=== PATIENT | female | born 1985 | race Two or more races ===

== ENCOUNTER 2019-07-22 12:15 | Outpatient (CLI) | payer OTHER ==
[~2019-07-22] VITALS: Ht 167.6 cm; Wt 81.8 kg
[2019-07-22 12:45] VITALS: BP 125/70
[2019-07-22 12:54] LABS: BASOPHILS # (AUTO) 0.03 x10^3/uL (0-0.1); BASOPHILS % (AUTO) 0 % (0-1); EOSINOPHILS # (AUTO) 0.01 x10^3/uL (0-0.4); EOSINOPHILS % (AUTO) 0 % (1-7); LYMPHOCYTES # (AUTO) 1.79 x10^3/uL (1-3.4); LYMPHOCYTES % (AUTO) 20 % (22-44); MD NO; MEAN CORPUSCULAR HEMOGLOBIN 29.7 pg (27.0-34.8); MEAN CORPUSCULAR HGB CONC 33.5 g/dL (32.4-35.8); MEAN CORPUSCULAR VOLUME 88.7 fL (80-100); MEAN PLATELET VOLUME 9.3 fL (7.4-10.4); MONOCYTES % (AUTO) 7 % (2-9); NEUTROPHILS # (AUTO) 6.58 x10^3/uL (1.8-6.8); NEUTROPHILS % (AUTO) 73 % (42-75); PLATELET COUNT 203 x10^3/uL (130-400); RED BLOOD COUNT 4.17 x10^6/uL (3.82-5.3); RED CELL DISTRIBUTION WIDTH 13.8 % (9.6-15.2)
[2019-07-22 13:01] LABS: MICROSCOPIC INDICATED
[2019-07-22 13:05] LABS: ALANINE AMINOTRANSFERASE 15 U/L (12-78); ALBUMIN 2.6 g/dL (3.4-5.0); ANION GAP 9 mmol/L (5-15); BILIRUBIN, DIRECT 0.1 mg/dL (0.1-0.2); CALCIUM 8.4 mg/dL (8.5-10.1); CHLORIDE 110 mmol/L (98-107); CREATININE 0.62 mg/dL (0.55-1.02)
[2019-07-22 13:08] LABS: ALKALINE PHOSPHATASE 197 U/L (45-117); BILIRUBIN,TOTAL 0.3 mg/dL (0.2-1.0); TOTAL PROTEIN 6.6 g/dL (6.4-8.2)
[2019-07-22 13:11] LABS: PROTEIN/CREATININE RATIO,URINE < 42 (0-200); TOTAL PROTEIN,URINE RANDOM < 5 mg/dL (0-12)
[2019-07-22 13:52] VITALS: BP 126/75
[2019-07-22] MEDS ORDERED: RHOGAM FROM BLOOD BANK 1 NOTE EA IM/IV ONE (14:00)
[2019-07-22] MEDS ORDERED: PREN1TAB60 PO (14:12)
== END 2019-07-22 14:24 | disposition home or self-care (01) ==
LOC: LDOP 12:15
PROVIDERS: ATTEND Obstetrics & Gynecology
DX: O26.899 Other specified pregnancy related conditions, unspecified trimester (principal); I10 Essential (primary) hypertension; E78.5 Hyperlipidemia, unspecified; O99.280 Endocrine, nutritional and metabolic diseases complicating pregnancy, unspecified trimester; E03.9 Hypothyroidism, unspecified
CPT/HCPCS: 36415; 59025; 80053; 81001; 82248; 82570; 84156; 84550; 85025; 86900; 96372; 99211; J2790; 86850; G0463

== ENCOUNTER 2019-08-14 14:58 | Outpatient (CLI) | payer OTHER ==
[~2019-08-14] VITALS: Ht 167.6 cm; Wt 80.9 kg
[~2019-08-14 14:58] MED LIST: PREN1TAB60 PO
[2019-08-14 15:26] VITALS: BP 131/90
== END 2019-08-14 17:27 | disposition home or self-care (01) ==
LOC: LDOP 14:58
PROVIDERS: ATTEND Obstetrics & Gynecology
DX: O09.93 Supervision of high risk pregnancy, unspecified, third trimester (principal); O30.043 Twin pregnancy, dichorionic/diamniotic, third trimester; Z3A.31 31 weeks gestation of pregnancy
CPT/HCPCS: 59025; 99211; G0463

== ENCOUNTER 2019-08-30 00:18 | Inpatient (IN) | payer OTHER ==
[~2019-08-30] VITALS: Ht 167.6 cm; Wt 80.9 kg
[2019-08-30] MEDS ORDERED: SODIUM CITRATE/CITRIC ACID 30 ML UDC ONE (01:13)
[2019-08-30] MEDS ORDERED: NEWBORN KIT ONE (01:13)
[2019-08-30] MEDS ORDERED: OXYTOCIN 30U/ 0.9% NaCL 500ML 500 ML ONE (01:13)
[2019-08-30] MEDS ORDERED: METOCLOPRAMIDE 5 MG/ML, 2ML ONE (01:13)
[2019-08-30 01:23] VITALS: BP 142/83
[2019-08-30] MEDS ORDERED: SODIUM CITRATE/CITRIC ACID 30 ML UDC PO ONE (01:30)
[2019-08-30] MEDS ORDERED: LACTATED RINGERS 1,000 ML IVBOLUS ONE (01:30)
[2019-08-30] MEDS ORDERED: METOCLOPRAMIDE 5 MG/ML, 2ML IV ONE (01:30)
[2019-08-30 01:31] LABS: BASOPHILS # (AUTO) 0.03 x10^3/uL (0-0.1); BASOPHILS % (AUTO) 0 % (0-1); EOSINOPHILS % (AUTO) 0 % (1-7); LYMPHOCYTES # (AUTO) 1.93 x10^3/uL (1-3.4); LYMPHOCYTES % (AUTO) 21 % (22-44); MD NO; MEAN CORPUSCULAR HEMOGLOBIN 28.5 pg (27.0-34.8); MEAN CORPUSCULAR HGB CONC 33.2 g/dL (32.4-35.8); MEAN CORPUSCULAR VOLUME 85.9 fL (80-100); MEAN PLATELET VOLUME 10.4 fL (7.4-10.4); MONOCYTES # (AUTO) 0.67 x10^3/uL (0.2-0.8); MONOCYTES % (AUTO) 7 % (2-9); NEUTROPHILS # (AUTO) 6.75 x10^3/uL (1.8-6.8); NEUTROPHILS % (AUTO) 72 % (42-75); PLATELET COUNT 188 x10^3/uL (130-400); RED BLOOD COUNT 4.44 x10^6/uL (3.82-5.3); RED CELL DISTRIBUTION WIDTH 13.9 % (9.6-15.2)
[2019-08-30] MEDS ORDERED: KETOROLAC 30 MG/1 ML ONE (01:47)
[2019-08-30] MEDS ORDERED: LIDOCAINE 1%, 20ML ONE (01:47)
[2019-08-30] MEDS ORDERED: FENTANYL PF 100 MCG/2ML ONE (01:47)
[2019-08-30] MEDS ORDERED: EPHEDRINE 50 MG/ML, 1ML ONE (01:47)
[2019-08-30] MEDS ORDERED: LACTATED RINGERS 1,000 ML IV SCH ×2 (02:39)
[2019-08-30] MEDS ORDERED: OXYTOCIN 30U/ 0.9% NaCL 500ML 500 ML IV SCH (02:39)
[2019-08-30] MEDS ORDERED: morphine SULFATE 10 MG/ML, 1ML IVPush PRN (03:00)
[2019-08-30] MEDS ORDERED: EPHEDRINE 50 MG/ML, 1ML IM PRN (03:00)
[2019-08-30] MEDS ORDERED: ONDANSETRON 2MG/ML, 2ML IV PRN (03:00)
[2019-08-30] MEDS ORDERED: CARBOPROST TROMETHAMINE 250 MCG/ML, 1ML IM PRN (03:00)
[2019-08-30] MEDS ORDERED: FENTANYL PF 100 MCG/2ML IV PRN (03:00)
[2019-08-30] MEDS ORDERED: METOCLOPRAMIDE 5 MG/ML, 2ML IVPush PRN (03:00)
[2019-08-30] MEDS ORDERED: ALBUTEROL SULFATE 2.5 MG/3 ML NPPB PRN (03:00)
[2019-08-30] MEDS ORDERED: ONDANSETRON 2MG/ML, 2ML IVPush PRN (03:00)
[2019-08-30] MEDS ORDERED: METHYLERGONOVINE 0.2 MG/ML IM PRN (03:00)
[2019-08-30] MEDS ORDERED: MEPERIDINE/PF 25MG/0.5ML IVPush PRN ×2 (03:00→04:00)
[2019-08-30] MEDS ORDERED: KETOROLAC 30 MG/1 ML IV SCH (03:00)
[2019-08-30] MEDS ORDERED: EPHEDRINE 50 MG/ML, 1ML IVPush PRN (03:00)
[2019-08-30] MEDS ORDERED: OXYcodone 5 MG/5 ML ORAL.SOL UDC PO PRN (03:00)
[2019-08-30] MEDS ORDERED: SIMETHICONE 80 MG CHEW TAB PO PRN (03:00)
[2019-08-30] MEDS ORDERED: MISOPROSTOL 200 MCG TABLET PO PRN (03:00)
[2019-08-30] MEDS ORDERED: LABETALOL 5MG/ML, 20ML IV PRN (03:00)
[2019-08-30] MEDS ORDERED: RHOGAM FROM BLOOD BANK 1 NOTE EA IM/IV ONE (03:00)
[2019-08-30] MEDS ORDERED: DIPHENHYDRAMINE 50 MG/ML, 1ML IVPush PRN (03:00)
[2019-08-30] MEDS ORDERED: MEPERIDINE/PF 100 MG/ML ONE (03:35)
[2019-08-30 04:23] VITALS: BP 135/84
[2019-08-30] MEDS: LEVOTHYROXINE 112 MCG TABLET PO SCH (06:24)
[2019-08-30] MEDS: OXYcodone IR 5MG TABLET PO PRN ×2 (06:26→21:34)
[2019-08-30 07:05] VITALS: BP 125/74
[2019-08-30] MEDS: KETOROLAC 30 MG/1 ML IV SCH ×3 (08:32→20:38)
[2019-08-30] MEDS: PRENATAL VIT/IRON/FA 1 EACH TABLET PO SCH (09:00)
[2019-08-30 10:52] LABS: BASOPHILS # (AUTO) 0.04 x10^3/uL (0-0.1); BASOPHILS % (AUTO) 0 % (0-1); EOSINOPHILS % (AUTO) 0 % (1-7); LYMPHOCYTES # (AUTO) 1.84 x10^3/uL (1-3.4); LYMPHOCYTES % (AUTO) 17 % (22-44); MD NO; MEAN CORPUSCULAR HEMOGLOBIN 28.5 pg (27.0-34.8); MEAN CORPUSCULAR HGB CONC 33.4 g/dL (32.4-35.8); MEAN CORPUSCULAR VOLUME 85.4 fL (80-100); MEAN PLATELET VOLUME 10.4 fL (7.4-10.4); MONOCYTES # (AUTO) 0.54 x10^3/uL (0.2-0.8); MONOCYTES % (AUTO) 5 % (2-9); NEUTROPHILS # (AUTO) 8.45 x10^3/uL (1.8-6.8); NEUTROPHILS % (AUTO) 78 % (42-75); PLATELET COUNT 171 x10^3/uL (130-400); RED BLOOD COUNT 4.15 x10^6/uL (3.82-5.3); RED CELL DISTRIBUTION WIDTH 13.8 % (9.6-15.2)
[2019-08-30 11:51] VITALS: BP 132/79
[2019-08-30] MEDS: DOCUSATE 100 MG CAPSULE PO PRN ×2 (15:02→20:38)
[2019-08-30 15:44] VITALS: BP 132/83
[2019-08-30 20:00] VITALS: BP 122/80
[2019-08-31 00:02] VITALS: BP 111/65
[2019-08-31] MEDS: KETOROLAC 30 MG/1 ML IV SCH ×4 (02:22→20:46)
[2019-08-31] MEDS: OXYcodone IR 5MG TABLET PO PRN ×4 (02:26→20:47)
[2019-08-31] MEDS: LEVOTHYROXINE 112 MCG TABLET PO SCH (05:48)
[2019-08-31 08:00] VITALS: BP 131/88
[2019-08-31] MEDS: PRENATAL VIT/IRON/FA 1 EACH TABLET PO SCH (08:29)
[2019-08-31] MEDS: DOCUSATE 100 MG CAPSULE PO PRN ×2 (08:29→20:46)
[2019-08-31 20:00] VITALS: BP 138/89
[2019-09-01] MEDS: KETOROLAC 30 MG/1 ML IV SCH (02:25)
[2019-09-01] MEDS: OXYcodone IR 5MG TABLET PO PRN ×3 (02:26→13:41)
[2019-09-01] MEDS: LEVOTHYROXINE 112 MCG TABLET PO SCH ×2 (06:00→06:07)
[2019-09-01 08:11] VITALS: BP 145/87
[2019-09-01] MEDS: PRENATAL VIT/IRON/FA 1 EACH TABLET PO SCH (08:40)
[2019-09-01] MEDS: IBUPROFEN 800 MG TABLET PO PRN ×2 (08:40→20:46)
[2019-09-01] MEDS: DOCUSATE 100 MG CAPSULE PO PRN ×2 (08:40→20:46)
[2019-09-01 09:57] LABS: ALANINE AMINOTRANSFERASE 16 U/L (12-78); ANION GAP 8 mmol/L (5-15); CALCIUM 7.8 mg/dL (8.5-10.1); CHLORIDE 113 mmol/L (98-107); CREATININE 0.68 mg/dL (0.55-1.02)
[2019-09-01 10:00] LABS: ALKALINE PHOSPHATASE 188 U/L (45-117); BILIRUBIN,TOTAL 0.3 mg/dL (0.2-1.0); TOTAL PROTEIN 5.2 g/dL (6.4-8.2)
[2019-09-01 10:12] LABS: BASOPHILS # (AUTO) 0.04 x10^3/uL (0-0.1); BASOPHILS % (AUTO) 1 % (0-1); EOSINOPHILS # (AUTO) 0.04 x10^3/uL (0-0.4); EOSINOPHILS % (AUTO) 1 % (1-7); HEMOGRAM NOTE RECHECKED; LYMPHOCYTES % (AUTO) 27 % (22-44); MD NO; MEAN CORPUSCULAR HEMOGLOBIN 28.7 pg (27.0-34.8); MEAN CORPUSCULAR HGB CONC 33.4 g/dL (32.4-35.8); MEAN CORPUSCULAR VOLUME 85.8 fL (80-100); MEAN PLATELET VOLUME 9.9 fL (7.4-10.4); MONOCYTES # (AUTO) 0.44 x10^3/uL (0.2-0.8); MONOCYTES % (AUTO) 7 % (2-9); NEUTROPHILS # (AUTO) 4.29 x10^3/uL (1.8-6.8); NEUTROPHILS % (AUTO) 65 % (42-75); PLATELET COUNT 154 x10^3/uL (130-400); RED BLOOD COUNT 3.64 x10^6/uL (3.82-5.3); RED CELL DISTRIBUTION WIDTH 13.8 % (9.6-15.2)
[2019-09-01 12:33] VITALS: BP 138/84
[2019-09-01 18:42] LABS: TOTAL PROTEIN,URINE RANDOM 6 mg/dL (0-12)
[2019-09-01 18:43] LABS: CREATININE,URINE RANDOM < 13.00 mg/dL; PROTEIN/CREATININE RATIO,URINE 462 (0-200)
[2019-09-01 20:52] VITALS: BP 144/87
[2019-09-02] MEDS: LEVOTHYROXINE 112 MCG TABLET PO SCH ×3 (05:25→08:42)
[2019-09-02] MEDS: IBUPROFEN 800 MG TABLET PO PRN ×3 (05:25→22:19)
[2019-09-02] MEDS: PRENATAL VIT/IRON/FA 1 EACH TABLET PO SCH (08:40)
[2019-09-02] MEDS: DOCUSATE 100 MG CAPSULE PO PRN (08:40)
[2019-09-02 09:02] VITALS: BP 150/89
[2019-09-02 13:14] VITALS: BP 155/90
[2019-09-02] MEDS: OXYcodone IR 5MG TABLET PO PRN (13:53)
[2019-09-02 16:20] VITALS: BP 150/80
[2019-09-02 22:00] VITALS: BP 151/80
[2019-09-03 04:30] VITALS: BP 142/79
[2019-09-03] MEDS: PRENATAL VIT/IRON/FA 1 EACH TABLET PO SCH (07:34)
[2019-09-03] MEDS: IBUPROFEN 800 MG TABLET PO PRN (07:34)
[2019-09-03] MEDS: DOCUSATE 100 MG CAPSULE PO PRN (07:34)
[2019-09-03 08:01] VITALS: BP 124/82
[2019-09-03] MEDS ORDERED: OXYC-302 PO (12:57)
[2019-09-03] MEDS ORDERED: IBUP-1222 PO (12:57)
== END 2019-09-03 13:30 | disposition home or self-care (01) | DRG 788 ==
LOC: LDOP 00:18 → LDIP 01:00 → 2NW 03:55
PROVIDERS: ADMIT Obstetrics & Gynecology; ATTEND Obstetrics & Gynecology
PROC: 10D00Z1 Extraction of Products of Conception, Low, Open Approach (ICD-10-PCS; principal; 2019-08-30)
PROC: 3E0234Z Introduction of Serum, Toxoid and Vaccine into Muscle, Percutaneous Approach (ICD-10-PCS; 2019-08-30)
DX: O32.1XX1 Maternal care for breech presentation, fetus 1 (principal); O32.1XX2 Maternal care for breech presentation, fetus 2; O42.913 Preterm premature rupture of membranes, unspecified as to length of time between rupture and onset of labor, third trimester; O14.94 Unspecified pre-eclampsia, complicating childbirth; O13.4 Gestational [pregnancy-induced] hypertension without significant proteinuria, complicating childbirth; O99.284 Endocrine, nutritional and metabolic diseases complicating childbirth; E03.9 Hypothyroidism, unspecified; Z37.2 Twins, both liveborn; Z3A.34 34 weeks gestation of pregnancy; O36.5931 Maternal care for other known or suspected poor fetal growth, third trimester, fetus 1; O30.043 Twin pregnancy, dichorionic/diamniotic, third trimester
CPT/HCPCS: 36415; J3490; 80053; 82570; 84112; 84156; 85025; 85461; 86592; 86850; 86900; 88307; G0378; J1885; J2175; J2790; J3010; J2590; J2765; J7120